=== PATIENT | female | born 1965 | race Hispanic/Latino ===

== ENCOUNTER → 2019-01-04 | Outpatient (CLI) | payer BC ==
[~2019-01-04] MED LIST: DIATRIZOATE MEGL/DIATRIZOA SOD 30 ML BTL PO ONE; IOPAMIDOL 370 MG/ML 200 ML INFUS..BTL INJ ONE; SODIUM CHLORIDE 0.9% 50ML 50 ML ONE
--- NOTE | 2019-01-04 12:21 | Diagnostic Imaging Report ---
CT of the abdomen and pelvis, with contrast, 01/04/2019. History: Left upper quadrant abdominal pain. Comparison: None available. Technique: Multidetector CT scanning of the abdomen and pelvis was performed from the level of the lung bases to the inferior pubic rami after intravenous and oral administration of contrast. Coronal and sagittal multiplanar reformations were obtained. RADIATION DOSE: Total DLP: 318 mGy*cm Dose modulation, iterative reconstruction, and/or weight based adjustment of the mA/kV was utilized to reduce the radiation dose to as low as reasonably achievable. Discussion: LUNG BASES: Bilateral breast implants are noted. Visualized lungs are clear. ABDOMEN: A 5 mm stone is present in the lower pole of the left kidney. There is no evidence of hydronephrosis or perinephric fat stranding. The ureters are nondilated. The liver, gallbladder, biliary tree, spleen, pancreas, adrenal glands, and right kidney are normal. The hepatic vein, portal vein, and splenic vein are patent. The abdominal aorta is within normal limits for size. The stomach, small bowel, and large bowel are unremarkable. The appendix is visualized and is normal. There is no evidence of adenopathy or free fluid. PELVIS: The bladder, uterus, adnexa are normal in appearance. There is no evidence of free fluid or adenopathy. BONES AND SOFT TISSUES: Mild degenerative changes are present throughout the lumbar spine without evidence of lytic or sclerotic lesion. IMPRESSION: 5 mm nonobstructing left renal calculus. Otherwise unremarkable CT of the abdomen and pelvis. Signed by: Gurmeet Jauregui on 01/04/2019 12:18 PM
== END ==
LOC: CT 09:52
PROVIDERS: ATTEND Internal Medicine Gastroenterology
DX: R10.32 Left lower quadrant pain (principal); R10.812 Left upper quadrant abdominal tenderness; K59.00 Constipation, unspecified; E66.3 Overweight; Z71.3 Dietary counseling and surveillance
CPT/HCPCS: 74177; Q9967

== ENCOUNTER → 2019-12-20 | Outpatient (CLI) | payer BC ==
[~2019-12-20] MED LIST changes: -DIATRIZOATE MEGL/DIATRIZOA SOD 30 ML BTL PO ONE
--- NOTE | 2019-12-20 10:52 | Diagnostic Imaging Report ---
CT of the abdomen and pelvis, with contrast. History: Abdominal pain, constipation. Comparison: 01/04/2019. Technique: Multidetector CT scanning of the abdomen and pelvis was performed from the level of the lung bases to the inferior pubic rami after intravenous administration of contrast. Coronal and sagittal multiplanar reformations were obtained. RADIATION DOSE: Total DLP: 338.36 mGy*cm Dose modulation, iterative reconstruction, and/or weight based adjustment of the mA/kV was utilized to reduce the radiation dose to as low as reasonably achievable. FINDINGS: The visualized lungs are unremarkable. The imaged portion of the heart demonstrates no significant abnormalities. Partially visualized bilateral breast prostheses noted. The liver is normal in size and attenuation. A subcentimeter hypodensity is identified within the inferior right hepatic lobe which is too small to definitively characterize. No other focal hepatic lesions are identified. The gallbladder is unremarkable. There is no biliary ductal dilatation. The stomach, spleen, pancreas, and bilateral adrenal glands are unremarkable. The kidneys are normal in size and location and enhance symmetrically. There is a stable 5 mm nonobstructing stone identified within the inferior pole the left kidney. There is no evidence for hydronephrosis. No ureteral stone or dilatation is identified. The urinary bladder demonstrates no significant abnormalities. The uterus and adnexa are grossly unremarkable. The abdominal aorta is normal in course and caliber. The IVC is unremarkable. Prominent pelvic/ovarian veins are noted, left greater than right-sided. The bilateral ovarian veins are prominent measuring up to 6 mm. Please note evaluation the bowel is limited without the use of enteric contrast material. The visualized loops of small and large bowel demonstrate no evidence of obstruction or inflammation. The appendix is visualized and appears unremarkable. There is no ascites or intraperitoneal free air. No abnormally enlarged lymph nodes are identified within the abdomen or pelvis. The osseous structures demonstrate no evidence for acute fracture or destructive process. The extraperitoneal soft tissues are unremarkable. IMPRESSION: No acute abdominopelvic process identified. Stable 5 mm nonobstructing left renal calculus. Prominence of the bilateral ovarian and pelvic veins. Findings are nonspecific but can be seen in the setting of pelvic congestion syndrome. Signed by: Dr. Newton Tellez MD on 12/20/2019 10:48 AM
== END ==
LOC: CT 07:52
PROVIDERS: ATTEND Family Medicine
DX: R10.2 Pelvic and perineal pain (principal); N20.0 Calculus of kidney
CPT/HCPCS: 74177; Q9967

== ENCOUNTER → 2020-02-07 | Outpatient (CLI) | payer BC ==
--- NOTE | 2020-02-07 13:57 | Diagnostic Imaging Report ---
EXAM: Renal Ultrasound INDICATION: ^ABD PAIN/RENAL STONES COMPARISON: None TECHNIQUE: Transverse and longitudinal images of the kidneys and bladder were obtained. FINDINGS: Right Kidney: Length: 11.0 cm Appearance: Normal echogenicity. Collecting system: No hydronephrosis Stones: None Cyst/Mass: None Left Kidney: Length: 10.9 cm Appearance: Normal echogenicity. Collecting system: No hydronephrosis Stones: None Cyst/Mass: None Bladder: No mass or calculi. Bilateral ureteral jets visualized. Prevoid volume estimate of 187cc. Incidental note is made of hepatic steatosis. IMPRESSION: No hydronephrosis or renal calculi. Hepatic steatosis. Signed by: Thien Wilkinson MD on 02/07/2020 1:53 PM
== END ==
LOC: US 12:26
PROVIDERS: ATTEND Family Medicine
DX: R10.9 Unspecified abdominal pain (principal); N20.0 Calculus of kidney; K76.0 Fatty (change of) liver, not elsewhere classified
CPT/HCPCS: 76770